=== PATIENT | male | born 1965 | race Caucasian/White ===

== ENCOUNTER 2020-08-30 12:02 | Day surgery (SDC) | payer OTHER, SELFPAY ==
[2020-08-30 12:21] VITALS: BP 163/89; PULSE 88; RESP 16; TEMP 36.3; O2SAT 100; BMI 26.2
[2020-08-30] MEDS: LACTATED RINGERS 1,000 ML 200 ML IV (12:33)
--- NOTE | 2020-08-30 13:03 | PM.HP.1 ---
History of Present Illness History of Present Illness Date Patient Seen: 08/30/20 Time Patient Seen: 13:03 Chief complaint: SDC Narrative: The patient presents for colorectal sreening. Most recent colonoscopy 6 years ago significant for benign polyps. No personal or family history of colon cancer. On further history denies any recent gastrointestinal symptoms. No nausea, vomiting, abdominal pain, loss of appetite, unexplained weight loss, change in bowel habits, diarrhea, constipation, melena, hematochezia, or bright red blood per rectum. Patient History Medical History Deviated septum Seasonal allergies Surgical History Hx of colonoscopy Family & Social History Social History: household members spouse Tobacco & Substance use: Smoking Status Never smoker alcohol intake current alcohol intake frequency 0-2 drinks per day Substance Use Type does not use Meds Home Medications and Allergies Home Medications Medication Instructions Recorded Confirmed Type No Known Home Medications 08/30/20 08/30/20 History Allergies Allergy/AdvReac Type Severity Reaction Status Date / Time No Known Drug Allergies Allergy Verified 08/30/20 12:20 Review of Systems Review of Systems ROS: Yes All systems reviewed with the patient and are negative except as otherwise documented Exam Vital Signs (past 8 hours): - 08/30/20 12:21 Temperature 97.3 F L Pulse Rate 88 Respiratory Rate 16 Blood Pressure 163/89 H Pulse Oximetry 100 Oxygen Delivery Method Room Air Oxygen Flow Rate 0 Narrative Exam Narrative: GENERAL-well developed adult male, no acute distress HEENT-no scleral icterus, hearing intact NECK-no JVD, trachea midline CVS- regular rate, no peripheral edema RESP-unlabored respiratory effort, no audible wheezing GI-soft, nontender nondistended MSK-no cyanosis or clubbing, extremities without deformity SKIN-warm, dry NEURO-alert and oriented, no focal deficits PYSCH-Appropriate mood and affect Assessment & Plan Assessment & Plan narrative: The patient requires colorectal screening and colonoscopy is recommended. Technical details were discussed. Risks, benefits, alternatives explained. Risks including but not limited to myocardial infarction, aspiration, bleeding, pain, missed lesion, incomplete examination, need for further radiographic studies, colonic perforation, and need for major abdominal surgery were discussed. All questions were answered to their satisfaction, and they are in agreement with this plan.
[2020-08-30] MEDS: MIDAZOLAM 5 MG/5 ML VIAL IV (13:13)
[2020-08-30] MEDS: fentaNYL 250 MCG/5 ML INJ IV (13:18)
--- NOTE | 2020-08-30 13:38 | PM.OP.ENDO ---
Operative Date/Time/Diagnoses Date of procedure: 08/30/20 Time of procedure: 13:38 Pre-op diagnosis: Personal history of colonic polyps Post-op diagnosis: same Procedure & Clinicians Study performed: Colonoscopy Same procedure as scheduled: Yes Indications: Personal history of colonic polyps Surgeon: Darron Monahan Procedure Notes Procedure in detail: Medications: Conscious sedation using 8 mg IV midazolam and 150 mcg IV of fentanyl The history and physical was performed/updated and the patient is ASA class is 1. The procedure was discussed in detail with the patient. Potential risks complications including infection, bleeding, missed diagnosis, perforation, need for surgery, and were explained. Their questions were answered and informed consent was obtained. Patient was brought to the procedure room and placed standard monitoring equipment. The patient's vital signs were monitored continuously throughout the entire procedure. Prior to starting time-out was performed. The patient was placed in the left lateral recumbent position. Procedural sedation was administered. Examination began with a thorough inspection of the perianal area there was no evidence of fissures, fistulae, external hemorrhoids or cutaneous malignancy. The colonoscopy scope was then placed into the anal canal and was advanced to the cecum, which was identified by the ileocecal valve, the appendiceal orifice and the confluence of the taenia. The scope was then slowly withdrawn examining colon thoroughly in all directions, irrigating it of any residual stool. 1. No masses polyps 2. Sigmoid diverticulosis 3. Grade 1 internal hemorrhoids Thepatient tolerated the procedure well. They will be discharged once criteria are met. The prep was of fair quality. The withdrawl time was 6 minutes. The sedation time was 27 minutes. Specimen(s): none sent Complications: none Impression: Normal colonoscopy Post-procedure Recommendations: Colonscopy in 10 years Disposition: same day surgery
[2020-08-30 13:41] VITALS: BP 127/79; PULSE 80; RESP 22; TEMP 36.4; O2SAT 92
[2020-08-30 13:46] VITALS: BP 128/81; PULSE 75; RESP 18; O2SAT 95
[2020-08-30 13:51] VITALS: BP 122/78; PULSE 74; RESP 20; O2SAT 95
[2020-08-30 13:56] VITALS: BP 122/80; PULSE 76; RESP 16; TEMP 37.1; O2SAT 95
[2020-08-30 14:13] VITALS: BP 122/82; PULSE 73; RESP 20; TEMP 36.9; O2SAT 94
== END 2020-08-30 14:16 | disposition home or self-care (01) ==
PROVIDERS: PCP Family Medicine; Referring Provider Surgery; Visit Provider Surgery
PROC: 0DJD8ZZ Inspection of Lower Intestinal Tract, Via Natural or Artificial Opening Endoscopic (ICD-10-PCS; CPT 45378; principal; 2020-08-30 13:00)
DX: Z12.11 Encounter for screening for malignant neoplasm of colon (principal); Z86.010 Personal history of colon polyps; K64.0 First degree hemorrhoids; K57.30 Diverticulosis of large intestine without perforation or abscess without bleeding
CPT/HCPCS: 45378; 99152; 99153; J2250; J3010